=== PATIENT | female | born 1995 | race Caucasian/White ===

== ENCOUNTER 2021-07-05 18:08 | Emergency (ER) | payer BC ==
[~2021-07-05] VITALS: Ht 172.7 cm; Wt 68.0 kg
[2021-07-05 19:32] VITALS: BP_SYST 125
--- NOTE | 2021-07-05 19:39 | NUR ---
Patient triaged and placed in waiting room. VS checked and patient appears in no acute distress at this time. Awaiting available bed, and MD notified of need for MSE.
--- NOTE | 2021-07-05 19:49 | NUR ---
26 YR OLD AOX4 AMBULATORY FEMALE WITH COMPLAINT OF DIZZYNESS WITH NAUSEA FOR 2 WEEKS. PT REPORTS HISTORY OF IBS. PT REPORTS FEELING OVERWHELMED WITH STRESS, AND IS EXPERIENCING NEW ONSET TIREDNESS. PT DENIES SOB OR VOMITING. PT IS ON [employer]. PENDING MD EVALUATION AT THIS TIE. WILL MONITOR NEEDED
[2021-07-05] MEDS ORDERED: NACL 0.9% 1,000 ML IV ONE (20:15)
[2021-07-05] MEDS ORDERED: MECLIZINE HCL 25 MG TABLET (ANITVERT) PO ONE (20:15)
--- NOTE | 2021-07-05 20:46 | NUR ---
PT URINE SENT TO LAB
[2021-07-05 20:51] LABS: BASOPHILS % (AUTO) 0.6 % (0.0-2.0); EOSINOPHILS # (AUTO) 0.1 K/uL (0.0-0.4); EOSINOPHILS % (AUTO) 2.3 % (0.0-4.0); HEMATOCRIT 36.7 % (36-48); HEMOGLOBIN 12.4 g/dL (12.0-16.0); LYMPHOCYTES # (AUTO) 1.9 K/uL (1.0-5.5); LYMPHOCYTES % (AUTO) 30.6 % (20.5-51.5); MEAN CORPUSCULAR HEMOGLOBIN 28 pg (27-31); MEAN CORPUSCULAR HGB CONC 34 % (32-36); MEAN CORPUSCULAR VOLUME 84 fL (79.0-98.0); MONOCYTES # (AUTO) 0.4 K/uL (0.0-1.0); NEUTROPHILS # (AUTO) 3.8 K/uL (1.8-7.7); NEUTROPHILS % (AUTO) 60.5 % (40.0-70.0); PLATELET COUNT (AUTO) 211 K/uL (130-430); RED BLOOD CELL COUNT(AUTO) 4.38 MIL/uL (4.2-6.2); RED CELL DISTRIBUTION WIDTH 13.3 % (9.0-15.0); WHITE BLOOD COUNT (AUTO) 6.3 K/uL (4.8-10.8)
[2021-07-05 21:11] LABS: CALCIUM 8.9 mg/dL (8.4-11.0); CREATININE 0.84 mg/dL (0.55-1.30); POTASSIUM 4.1 mmol/L (3.5-5.1)
[2021-07-05 21:17] LABS: ALBUMIN 3.8 g/dL (3.4-4.8)
[2021-07-05 21:20] VITALS: BP_SYST 117
[2021-07-05] MEDS ORDERED: MECL-160 PO (21:39)
[2021-07-05 21:44] LABS: TOTAL BILIRUBIN 0.4 mg/dL (0.0-1.0)
[2021-07-05 22:07] LABS: BILIRUBIN,URINE NEGATIVE (NEGATIVE); BLOOD, URINE NEGATIVE (NEGATIVE); CLARITY/URINE CLEAR (CLEAR); COLOR,URINE YELLOW (YELLOW); GLUCOSE,URINE NEGATIVE (NEGATIVE); KETONES,URINE NEGATIVE (NEGATIVE); LEUKOCYTE ESTERASE ,URINE NEGATIVE (NEGATIVE); NITRITE, URINE NEGATIVE (NEGATIVE); PROTEIN URINE NEGATIVE (NEGATIVE); UROBILINOGEN,URINE 0.2 (0.2-1.0)
--- NOTE | 2021-07-05 22:20 | NUR ---
PT INFORMED OF DISCHARGE, PT IV REMOVED. CLEAN GAUZE APPLIED TO SITE. PT TOLERATED WELL. PT PROVIDE WITH VERBAL AND WRITTEN INSTRUCTIONS ALONG WITH NEW PRESCRIPTION FOR MECLIZINE. PT VERBALIZED UNDERSTANDING. PT DISCHARGED IN STABLE CONDITION WITH ALL BELONGINGS
== END 2021-07-05 22:52 | disposition home or self-care (01) ==
LOC: SED 18:08
DX: R42 Dizziness and giddiness (principal); B34.9 Viral infection, unspecified
CPT/HCPCS: 36415; 71045; 80053; 81003; 81025; 85025; 93005; 96360; 99285; J7030; J8597; 81002